=== PATIENT | female | born 1990 | race Caucasian/White ===

== ENCOUNTER 2019-02-11 13:49 | Emergency (ER) | payer MEDICAID ==
[~2019-02-11] VITALS: Ht 165.1 cm; Wt 65.3 kg
[2019-02-11 14:30] VITALS: BP 123/73; Ht 165.1 cm; Wt 65.3 kg
== END 2019-02-11 18:14 | disposition home or self-care (01) ==
LOC: ED 13:49
DX: S50.02XA Contusion of left elbow, initial encounter (principal); W18.49XA Other slipping, tripping and stumbling without falling, initial encounter; Y93.21 Activity, ice skating; Y92.89 Other specified places as the place of occurrence of the external cause; Y99.9 Unspecified external cause status